=== PATIENT | male | born 1960 | race Caucasian/White ===

== ENCOUNTER 2016-11-03 12:30 | Emergency (ER) | payer MEDICARE, OTHER ==
[~2016-11-03] VITALS: Ht 172.7 cm; Wt 86.0 kg
[~2016-11-03 12:30] MED LIST: BENZONATATE200 MG PO; DOXYCYCL HYC100 MG PO; FLEXERIL PO; LISINOPRIL5 MG PO; MUCINEX600 MG PO; ZITHROMAX250 MG PO
[2016-11-03] MEDS ORDERED: PROZAC20 MG PO (12:46)
[2016-11-03] MEDS ORDERED: TRAMADOL HCL50 MG PO (12:46)
[2016-11-03] MEDS ORDERED: REQUIP0.5 MG PO (12:47)
[2016-11-03] MEDS ORDERED: BACTRIM DS1 TAB PO (13:16)
[2016-11-03] MEDS ORDERED: FLONASE NASAL50 MCG (13:16)
[2016-11-03 13:35] VITALS: BP 148/78
== END 2016-11-03 13:40 | disposition home or self-care (01) ==
LOC: ED 12:30
DX: J01.10 Acute frontal sinusitis, unspecified (principal); R09.81 Nasal congestion; R05 Cough; R51 Headache

== ENCOUNTER 2017-01-21 19:38 | Emergency (ER) | payer MEDICARE, OTHER ==
[~2017-01-21] VITALS: Ht 172.7 cm; Wt 96.8 kg
[~2017-01-21 19:38] MED LIST changes: +BACTRIM DS1 TAB PO; +FLONASE NASAL50 MCG; +PROZAC20 MG PO; +REQUIP0.5 MG PO; +TRAMADOL HCL50 MG PO
[2017-01-21] MEDS ORDERED: MUCINEX D1 TAB PO (22:32)
[2017-01-21] MEDS ORDERED: DOXYCYC MONO100 M1 PO (22:32)
[2017-01-21 22:40] VITALS: BP 133/80
== END 2017-01-21 22:40 | disposition home or self-care (01) ==
LOC: ED 19:38
DX: J40 Bronchitis, not specified as acute or chronic (principal); R05 Cough; R09.81 Nasal congestion; R06.02 Shortness of breath

== ENCOUNTER 2017-09-30 16:12 | Emergency (ER) | payer MEDICARE, OTHER ==
[~2017-09-30] VITALS: Ht 172.7 cm; Wt 104.5 kg
[~2017-09-30 16:12] MED LIST changes: +DOXYCYC MONO100 M1 PO; +MUCINEX D1 TAB PO
[2017-09-30 16:46] LABS: HEMATOCRIT 45.3 % (39.0-50.0); HEMOGLOBIN 15.3 g/dl (14.0-18.0); IMMATURE GRANULOCYTES 0.2 % (0.0-1.0); MEAN CELL VOLUME 83.9 fL CALC (80.0-100.0); MEAN CORPUSCULAR HGB 28.3 pG CALC (26.0-32.0); MEAN CORPUSCULAR HGB CONC 33.8 g/L CALC (32.0-36.0); NEUT# 3.52 thou/uL (1.82-7.42); RED BLOOD COUNT 5.4 mill/uL (4.70-6.10); RED CELL DISTRI WIDTH 13.4 % (11.5-15.5)
[2017-09-30 17:12] LABS: ANION GAP 16 (6-22 (CALC)); BUN 16 mg/dL (9-20); BUN/CREATININE RATIO 19 (12-20 (CALC)); CARBON DIOXIDE 26 mmol/l (22-30); CHLORIDE 108 mmol/l (95-108); CREATININE 0.9 mg/dL (0.7-1.3); GFR > 60 ML/MIN (>=60 (CALC)); GFR FOR AFR.AMER. > 60 ML/MIN (>=60 (CALC)); POTASSIUM 3.8 mmol/l (3.5-5.1); SODIUM 146 mmol/l (137-146)
[2017-09-30 17:52] VITALS: BP 134/69
[2017-09-30] MEDS ORDERED: NITROGLYCERIN0.4 MG SL (17:59)
[2017-09-30] MEDS ORDERED: REQUIP0.5 MG PO (22:27)
== END 2017-09-30 17:52 | disposition left against medical advice (07) ==
LOC: ED 16:12
PROVIDERS: Family Medicine
DX: R07.9 Chest pain, unspecified (principal); I10 Essential (primary) hypertension; I31.9 Disease of pericardium, unspecified; R05 Cough; Z91.19 Patient's noncompliance with other medical treatment and regimen

== ENCOUNTER 2017-09-30 20:09 | Observation (INO) | payer MEDICARE, OTHER ==
[~2017-09-30] VITALS: Ht 172.7 cm; Wt 101.0 kg
[~2017-09-30 20:09] MED LIST changes: +NITROGLYCERIN0.4 MG SL
--- NOTE | 2017-09-30 20:24 | NUR ---
PT RETURNED TO ER. STATES HIS CP HAS CHANGED FROM HEAVY TO SHARP PAINS NOW. STATES HIS EX- MOVED BACK IN WITH HIM 3 DAYS AGO. PT AMBULATED TO ER ROOM 13, CHANGED INTO GOWN, ON MONITOR, EKG COMPLETE.
[2017-09-30 21:07] LABS: ALBUMIN 4.2 g/dL (3.2-5.0); ALKALINE PHOSPHATASE 87 u/l (38-126); AMYLASE < 30 u/l (30-110); ANION GAP 18 (6-22 (CALC)); BILIRUBIN, TOTAL 0.5 mg/dL (0.0-1.4); BUN 15 mg/dL (9-20); BUN/CREATININE RATIO 16 (12-20 (CALC)); CARBON DIOXIDE 24 mmol/l (22-30); CHLORIDE 107 mmol/l (95-108); CREATININE 0.9 mg/dL (0.7-1.3); GFR > 60 ML/MIN (>=60 (CALC)); GFR FOR AFR.AMER. > 60 ML/MIN (>=60 (CALC)); LIPASE 49 u/l (23-300); POTASSIUM 3.7 mmol/l (3.5-5.1); SGOT/AST 22 u/l (17-59); SGPT/ALT 28 u/l (21-72); SODIUM 146 mmol/l (137-146); TOTAL PROTEIN 6.6 g/dL (6.3-8.2)
[2017-09-30] MEDS ORDERED: REQUIP0.5 MG PO (22:27)
--- NOTE | 2017-09-30 22:30 | NUR ---
PHONEREPORT TO [facility] VALDE[facility] ON [facility]
--- NOTE | 2017-09-30 22:36 | NUR ---
TO [facility] VIA STRETCHER ON TELE WITH RN ESCORT IN STABLE CONDITION
[2017-09-30 22:40] VITALS: BP 142/78
--- NOTE | 2017-09-30 22:40 | NUR ---
PT ARRIVED TO UNIT VIA STRETCHER WITH ER STAFF. ALERT AND ORIENTED. INTIALL C/O 3/10 MIDSTERNAL CHEST PAIN; STATES THAT MEDICATION GIVEN IN ED WAS EFFECTIVE. RESPIRATIONS EVEN AND UNLABORED ON ROOM AIR. ORIENTED TO ROOM AND CALL LIGHT SYSTEM. PT INDEPENDENT AND AMBULATORY. SAFETY PRECAUTIIONS REINFORCED. CALL LIGHT SYSTEM REVIEWED AND IN REACH.
--- NOTE | 2017-10-01 00:28 | NUR ---
ROPINIROLE GIVEN FOR C/O RESTLESS LEG. IV FLUIDS ALSO INITIATED AND ARE INFUSING WITHOUT DIFFICUTLY; IV SITE APPEARS HEALTHY. SNACK AND FLUIDS GIVEN. PT HAS NO OTHER REQUESTS AT THIS TIME. SAFETY MEASURES IN PLACE. CALL LIGHT WITHIN REACH.
[2017-10-01 04:00] VITALS: BP 132/71
--- NOTE | 2017-10-01 04:00 | NUR ---
PT ASLEEP AT THIS TIME WITH NO SIGNS OF DISTRESS NOTED. RESPIRATIONS EVEN AND UNLABORED. INDEPENDENT IN ROOM. UP ONCE TO VOID. IV FLUIDS INFUSING WITHOUT DIFFICULTY; IV SITE APPEARS HEALTHY. SAFETY MEASURES IN PLACE. CALL LIGHT WITHIN REACH.
[2017-10-01 09:32] VITALS: BP 147/76
[2017-10-01 10:44] LABS: CHOLESTEROL HDL RATIO 4.9 (<4.4 (CALC))
[2017-10-01 11:00] VITALS: BP 136/83
--- NOTE | 2017-10-01 12:00 | NUR ---
PT STATES HE HAS AN APPT AT 2:30 IN [place] THAT HE CAN NOT MISS; INFORM PT THAT MD WILL BE IN SOON HE CAN; PER PT IF MD NOT HERE BY 1230, HE HAS TO LEAVE; KATIE MAGANA NOTIFIED
[2017-10-01 12:19] LABS: INFLUENZA A NONE DETECTED (NONE DETECT)
[2017-10-01 12:20] LABS: INFLUENZA B NONE DETECTED (NONE DETECT)
--- NOTE | 2017-10-01 12:21 | NUR ---
Patient decides to leave AMA. Multiple attempts made to ecourage patient to remain here for continued treatment. Explained to patient all risks of leaving against medical advice including . Pt verbalized understanding of all risks. Pt also encouraged to return to [facility] at any time, especially if symptoms continue or become worse. Pt verbalized understanding.
== END 2017-10-01 12:16 | disposition left against medical advice (07) ==
LOC: ED 20:09 → ED-I 21:10 → ED 22:24 → MS2 22:25
PROVIDERS: Emergency Medicine; Nurse Practitioner Family; ADMIT Internal Medicine; ATTEND Internal Medicine
DX: R07.9 Chest pain, unspecified (principal); I10 Essential (primary) hypertension; I31.9 Disease of pericardium, unspecified; R05 Cough; Z91.19 Patient's noncompliance with other medical treatment and regimen